=== PATIENT | female | born 1935 | race Caucasian/White ===

== ENCOUNTER 2024-09-19 14:11 | Outpatient (CLI) | payer MEDICARE, BC ==
--- NOTE | 2024-09-20 16:14 | CARDIOLOGY REPORT ---
APPROVED REPORT EXAM: Comprehensive 2D, Doppler, and color-flow Echocardiogram. Patient Location: OUT-PATIENT Blood Pressure: 127/73 mmHg Heart Rate: 72 bpm Rhythm: Sinus Indications Shortness of Breath HX of Aortic Valve Replacement (2005) CHILD DEVELOPMENT CONSULTANT: Flores Galindo, DO Previous ECHO Unavailable 2D Dimensions LA Diam4.0 cm IVSd 0.9 (0.7-1.1cm) LVDd 4.0 cm PWd 0.9 (0.7-1.1cm) IVSs 0.9 (0.8-1.2cm) LVDs 3.5 (2.5-4.0cm) PWs 1.3 (0.8-1.2cm) LVEF(%) 28.8 (>50%) IVC 15.13 mmFS (%) 13.2 % SV 20.0 ml M-Mode Dimensions Left Atrium(MM) 3.85 (2.5-4.0cm) Aortic Root 2.70 (2.2-3.7cm) MV EPSS 1.5 (<0.5cm) Aortic Valve AoV Peak Demetrius. 241.3 cm/s AoV VTI 47.5 cm AO Peak GR. 23.3 mmHg AO Mean GR. 14 mmHg LVOT VTI 20.94 cm LVOT Peak Demetrius. 98.6 cm/s AI P 1/2 Time 429 ms Mitral Valve MV E Velocity 110.5 cm/s MV DECEL TIME 174 ms MV A Velocity 73.9 cm/s MV PHT 53 ms E/A Ratio 1.5 MVA (PHT) 4.16 cm2 TDI E/Medial E' 11.1 Pulmonary Valve PV Peak Velocity 139.6 cm/s PV Peak Grad. 8 mmHg Tricuspid Valve TR P. Velocity 358 cm/s RAP ESTIMATE 10 mmHg TR Peak Gr. 52 mmHg RVSP 62 mmHg LEFT VENTRICLE Normal LV size and wall thickness. Overall systolic function is severely decreased. Mid inferoseptal wall appears akinetic. 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 LVEF is approximately 30%. RIGHT VENTRICLE The right ventricle is normal size with mildly decreased function. ATRIA Left atrium is mildly dilated. AORTIC VALVE Bioprosthetic AVR appears well seated with normal function. Peak / mean gradients of 23 / 14 mmHG. Pe ak velocity is measured at 2.41 m/sec. Mild to moderate insufficiency. MITRAL VALVE Mitral valve leaflets are mildly thickened with mild annular calcification. No stenosis. Moderate reg urgitation. TRICUSPID VALVE The tricuspid valve is normal in structure with moderate regurgitation. PULMONIC VALVE The pulmonary valve is normal in structure with mild insufficiency. GREAT VESSELS The aortic root is normal in size. The ascending aorta is normal in size. The IVC is normal in size a nd collapses >50% with inspiration. PERICARDIUM Normal pericardium. No effusion. Other Information Study Quality: Adequate Conclusion Normal LV size and wall thickness. Overall systolic function is severely decreased. Mid inferoseptal wall appears akinetic. 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 LVEF is approximately 30%. The right ventricle is normal size with mildly decreased function. Left atrium is mildly dilated. Bioprosthetic AVR appears well seated with normal function. Peak / mean gradients of 23 / 14 mmHG. Peak velocity is measured at 2.41 m/sec. Mild to moderate insufficiency. Mitral valve leaflets are mildly thickened with mild annular calcification. No stenosis. Moderate r egurgitation. The tricuspid valve is normal in structure with moderate regurgitation. Normal pericardium. No effusion.
== END 2024-09-19 23:59 | disposition home or self-care (01) ==
LOC: CARD DIAG 14:11
PROVIDERS: ATTEND Internal Medicine Cardiovascular Disease
DX: I08.8 Other rheumatic multiple valve diseases (principal); R06.02 Shortness of breath
CPT/HCPCS: 93306